=== PATIENT | male | born 1970 | race Caucasian/White ===

== ENCOUNTER → 2020-08-12 | Day surgery (SDC) | payer OTHER ==
[~2020-08-12] MED LIST: PERCOCET 5-3251 EACH PO
[2020-08-12 09:03] LABS: HCT 44.1 % (42.0-52.0); HGB 15.6 g/dl (13.2-18.0); MCH 31.3 pg (25.0-31.0); MCHC 35.4 g/dL (32.0-36.0); MCV 88.4 fL (78.0-100.0); MPV 9.6 fL (6.0-9.5); RBC 4.99 M/uL (4.70-6.00); RDW 12.9 % (11.5-14.0); WBC 6.5 K/uL (4.0-10.5)
[2020-08-12 09:29] LABS: ALBUMIN 3.3 g/dL (3.4-5.0); BILIRUBIN - TOTAL 0.4 mg/dL (0.2-1.0); BUN/CREAT RATIO (CALC) 20.3 RATIO; CREATININE 0.59 mg/dL (0.67-1.17); GLOBULIN (CALCULATION) 3.5 g/dL; POTASSIUM 4.5 mmol/L (3.5-5.1); TOTAL PROTEIN 6.8 g/dL (6.4-8.2)
== END | disposition home or self-care (01) ==
LOC: FAS 07:51
PROVIDERS: Orthopaedic Surgery
DX: M75.122 Complete rotator cuff tear or rupture of left shoulder, not specified as traumatic (principal); M75.52 Bursitis of left shoulder; M19.012 Primary osteoarthritis, left shoulder; Z20.822 Contact with and (suspected) exposure to COVID-19
CPT/HCPCS: 36415; 71045; 80053; 93005; C1713; J0171; J0690; J1100; J1885; J2250; J2405; J2704; J2795; J3010; J7120